=== PATIENT | male | born 1990 | race Caucasian/White ===

== ENCOUNTER 2016-10-10 12:29 | Emergency (ER) | payer OTHER ==
[~2016-10-10] VITALS: Ht 175.3 cm; Wt 63.5 kg
[2016-10-10 12:34] VITALS: Ht 175.3 cm; Wt 63.5 kg
[2016-10-10] MEDS ORDERED: FAMOTIDINE 20 MG TAB PO STA (15:13)
[2016-10-10] MEDS ORDERED: ONDANSETRON 4 MG INJ IV STA ×2 (15:13→18:41)
[2016-10-10] MEDS ORDERED: morphine 4 MG/ML VIAL IV STA (15:13)
[2016-10-10] MEDS ORDERED: SOD CHLORIDE 0.9% 1,000 ML IV STA (15:13)
[2016-10-10] MEDS ORDERED: SOD CHLORIDE 0.9% 1,000 ML IV ONE (15:30)
--- NOTE | 2016-10-10 15:46 | RADRPT ---
PROCEDURE: XR Chest. CLINICAL INDICATION: Abdomen pain. TECHNIQUE: Single frontal view. COMPARISON: None. FINDINGS: The lungs are clear. The heart size is normal. There is no pleural effusion. There is no pneumothorax. IMPRESSION: 1. Normal chest radiograph. RPTAT: QQ .Earl Argueta MD, Date Time Electronically viewed and signed by .Earl Argueta MD, on 10/10/2016 15:46 .R/
[2016-10-10 15:52] LABS: ADD SCAN DIFF NO
[2016-10-10 15:54] LABS: ABNORMAL IP MESSAGE 1; HEMATOCRIT 45.8 % (42.0-52.0); HEMOGLOBIN 15.2 g/dl (14.0-18.0); MEAN CORPUSCULAR HEMOGLOBIN 28.3 pg (29.0-33.0); MEAN CORPUSCULAR HGB CONC 33.2 g/dl (32.0-37.0); MEAN CORPUSCULAR VOLUME 85.1 fl (82.0-101.0); MEAN PLATELET VOLUME 9.6 fl (7.4-10.4); PLATELET COUNT 247 10^3/UL (140-415); RED BLOOD COUNT 5.38 10^6/ul (4.70-6.10); RED CELL DISTRIBUTION WIDTH 13.2 % (11.5-14.5); WHITE BLOOD COUNT 5.8 10^3/ul (4.8-10.8)
[2016-10-10] MEDS ORDERED: ACETAMINOPHEN 325 MG TAB PO ONE (16:00)
[2016-10-10 16:02] LABS: ADD UMIC YES; URINE BILIRUBIN (Dip) NEGATIVE (NEGATIVE); URINE BLOOD (Dip) 2+ (NEGATIVE); URINE COLOR YELLOW (YELLOW); URINE GLUCOSE (Dip) NEGATIVE (NEGATIVE); URINE KETONES (Dip) NEGATIVE (NEGATIVE); URINE LEUKOCYTE ESTERASE (Dip) NEGATIVE (NEGATIVE); URINE NITRITE (Dip) NEGATIVE (NEGATIVE); URINE TOTAL PROTEIN (Dip) 2+ (NEGATIVE); URINE UROBILINOGEN (Dip) 0.2 E.U./dL (0.1-1.0)
[2016-10-10 16:13] LABS: INR 1.46; PROTIME 17.8 Sec (12.2-14.2); PT RATIO 1.4
[2016-10-10 16:14] LABS: PARTIAL THROMBOPLASTIN TIME 33.2 Sec (25.0-35.0); URINE RBCS 0-2 /HPF (0)
[2016-10-10 16:15] LABS: MUCUS,URINE FEW; SQUAMOUS EPITHELIAL CELL,UR OCCASIONAL
[2016-10-10 16:26] LABS: ALBUMIN 4.7 g/dl (3.3-4.9); POTASSIUM 3.4 mmol/L (3.5-5.1)
[2016-10-10 16:28] LABS: CREATININE 0.87 mg/dl (0.61-1.24)
[2016-10-10 16:29] LABS: ALBUMIN/GLOBULIN RATIO 1.2; TOTAL PROTEIN 8.6 g/dl (6.1-8.1)
[2016-10-10 16:30] LABS: CALCIUM 9.1 mg/dl (8.4-10.2)
[2016-10-10 16:32] LABS: LYMPHOCYTES # 0.4 10^3/ul (0.8-2.9); MONOCYTE # 0.3 10^3/ul (0.3-0.9); MYELOCYTES # 0.5; NEUTROPHIL # 2.4 10^3/ul (1.6-7.5)
[2016-10-10 16:34] LABS: PLATELET ESTIMATE PLT APPEAR ADEQUATE
[2016-10-10] MEDS ORDERED: SOD CHLORIDE 0.9% 100 ML ONE (17:24)
[2016-10-10] MEDS ORDERED: IOHEXOL 300MG/ML 150 ML BTL ONE (17:24)
--- NOTE | 2016-10-10 18:00 | RADRPT ---
PROCEDURE: CT Abdomen and Pelvis with contrast. CLINICAL INDICATION: Abdominal pain. TECHNIQUE: CT scan of the abdomen and pelvis with contrast was performed . The patient was scanne d following the uncomplicated intravenous administration of 90 cc of Omnipaque 300. Coronal and sag ittal reformatted images were obtained from the axial source images. Images were reviewed on a high- resolution PACS workstation. images. The calculated radiation dose measures 351.13 mGy centimeters. The CTDI measures 6.96 mGy. One or more of the following dose reduction techniques were used: - Automated exposure control. - Adjustment of the mA and/or kV according to patient size . - Use of iterative reconstruction technique. Images were reviewed on a high-resolution PACS workstation COMPARISON: None. FINDINGS: CT abdomen: The lung bases are clear. The heart size is normal, without pericardial thickening or effusion. Th e liver appears enlarged and decreased density without focal mass or intrahepatic biliary dilatation . The spleen is normal in size and homogeneous in density. The stomach is partially collapsed, but is grossly unremarkable. The pancreas as visualized is normal. The gallbladder and biliary tree a re unremarkable and there is no evidence for biliary dilatation. The adrenal glands are symmetric a nd normal. The kidneys are symmetrically unremarkable as well. No renal calculus or obstructive ur opathy or mass lesion is seen. The aorta is of normal caliber. There is no retroperitoneal lymphadenopathy. The renetta hepatis guillermo on is clear. The small bowel loops are within normal limits. There are scattered mesenteric lymph nodes, more pronounced in the right lower quadrant. CT pelvis: The small bowel loops situated within the pelvis are unremarkable. The pelvic organs are normal. T he pelvic sidewalls and inguinal regions are clear. The sigmoid colon and rectum are thickened. Th ere is also thickening the transverse colon and to a greater extent at the ascending colon.. A small amount of fluid is seen in the right paracolic gutter. The appendix is not well visualized, there are no secondary findings to suggest acute appendicitis. The bladder is normal. The surrounding osseous structures are intact. Incidental note is made of incomplete fusion of the posterior elements of S1. No osteolytic or osteoblastic lesion is detected. IMPRESSION: 1. Mild, diffuse colonic thickening representing colitis from an infectious or inflammatory etiology . 2. Mildly prominent mesenteric lymphadenopathy, likely reactive in nature. 3. Mildly enlarged liver. 4. No evidence for small bowel obstruction. RPTAT: PP .Yaniv Herrera MD, MD Date Time Electronically viewed and signed by .Yaniv Herrera MD, MD on 10/10/2016 17:59 .d/
[2016-10-10] MEDS ORDERED: DICY10CA60 PO (19:43)
[2016-10-10] MEDS ORDERED: ACET325T33 PO (19:43)
[2016-10-10] MEDS ORDERED: ONDA4TAB14 PO (19:44)
[2016-10-10 20:06] VITALS: BP 123/68; PULSE 106; RESP 16; TEMP 99.9
--- NOTE | 2016-10-10 20:59 | ERD ---
ER Documentation Chief Complaint Date/Time DATE: 10/10/16 TIME: 20:55 Chief Complaint ABD PAIN WITH N/V/D. FATIGUE HPI This patient is a 26-year-old male with past medical history of appendicitis and GERD who is post appendectomy presenting to the emergency department for 14 episodes of vomiting since 6 AM today. He also reports 20 episode of loose stools since this morning. He has had diffuse abdominal pain but worse in the left lower quadrant since 9 AM today. He took Zantac today at 7 AM with mild relief of symptoms. The patient denies all other complaints currently. ROS All systems reviewed and are negative except as per history of present illness. Medications Home Meds Active Scripts Ondansetron (Ondansetron Odt) 4 Mg Tab.rapdis, 4 MG PO Q6H Y for NAUSEA AND/OR VOMITING, #10 TAB Prov:CECELIA ACEVEDO PA-C 10/10/16 Acetaminophen* (Tylenol*) 325 Mg Tablet, 2 TAB PO Q6 Y for PAIN AND OR ELEVATED TEMP, #20 TAB Prov:CECELIA ACEVEDO PA-C 10/10/16 Dicyclomine Hcl* (Bentyl*) 10 Mg Capsule, 10 MG PO QID, #20 CAP Prov:CECELIA ACEVEDO PA-C 10/10/16 Allergies Allergies: Coded Allergies: metronidazole (Verified Allergy, Severe, UNABLE TO BREATH, 10/10/16) PMhx/Soc Medical and Surgical Hx: pt denies Medical Hx, pt denies Surgical Hx FmHx Noncontributory for chief complaint Physical Exam Vitals Vital Signs Date Time Temp Pulse Resp B/P Pulse Ox O2 Delivery O2 Flow Rate FiO2 10/10/16 20:06 99.9 106 16 123/68 98 Room Air 10/10/16 15:30 101.0 10/10/16 12:34 101.4 110 22 116/78 98 Physical Exam Const: The patient is resting in the gurney in mild distress. Head: Atraumatic Eyes: Normal Conjunctiva ENT: Normal External Ears, Nose and Mouth. Neck: Full range of motion..~ No meningismus. Resp: Clear to auscultation bilaterally Cardio: Regular rate and rhythm, no murmurs Abd: Soft, the patient has diffuse tenderness to palpation but no rebound guarding or tenderness., non distended. Normal bowel sounds. Skin: No petechiae or rashes Back: No midline or flank tenderness Ext: No cyanosis, or edema Neur: Awake and alert Psych: Normal Mood and Affect Result Diagram: 10/10/16 1529 10/10/16 1529 Results 24 hrs Laboratory Tests Test 10/10/16 15:29 10/10/16 18:55 White Blood Count 5.810^3/ul Red Blood Count 5.3810^6/ul Hemoglobin 15.2g/dl Hematocrit 45.8% Mean Corpuscular Volume 85.1fl Mean Corpuscular Hemoglobin 28.3pg Mean Corpuscular Hemoglobin Concent 33.2g/dl Red Cell Distribution Width 13.2% Platelet Count 72802^3/UL Mean Platelet Volume 9.6fl Neutrophils % 42.0% Band Neutrophils % 21.0% Lymphocytes % 7.0% Reactive Lymphocytes % 9.0% Monocytes % 5.0% Eosinophils % % Metamyelocytes % 8.0% Myelocytes % 8.0% Neutrophils # 2.410^3/ul Lymphocytes # 0.410^3/ul Monocytes # 0.310^3/ul Eosinophils # 10^3/ul Metamyelocytes # 0.5 Myelocytes # 0.5 Platelet Estimate PLT APPEAR ADEQUATE Large Platelets FEW Prothrombin Time 17.8Sec Prothrombin Time Ratio 1.4 INR International Normalized Ratio 1.46 Activated Partial Thromboplast Time 33.2Sec Urine Color YELLOW Urine Clarity CLEAR Urine pH 6.0 Urine Specific [place] >=1.030 Urine Ketones NEGATIVE Urine Nitrite NEGATIVE Urine Bilirubin NEGATIVE Urine Urobilinogen 0.2 E.U./dL Urine Leukocyte Esterase NEGATIVE Urine Microscopic RBC 0-2/HPF Urine Microscopic WBC 0-2/HPF Urine Squamous Epithelial Cells OCCASIONAL Urine Mucus FEW Urine Hemoglobin 2+ Urine Glucose NEGATIVE% Urine Total Protein 2+ Sodium Level 133mmol/L Potassium Level 3.4mmol/L Chloride Level 92mmol/L Carbon Dioxide Level 28mmol/L Anion Gap 16 Blood Urea Nitrogen 14mg/dl Creatinine 0.87mg/dl Glucose Level 130mg/dl Lactic Acid Level 3.2mmol/L 2.5mmol/L Calcium Level 9.1mg/dl Total Bilirubin 1.0mg/dl Direct Bilirubin 0.00mg/dl Indirect Bilirubin 1.0mg/dl Aspartate Amino Transf (AST/SGOT) 31IU/L Alanine Aminotransferase (ALT/SGPT) 40IU/L Alkaline Phosphatase 43IU/L Total Protein 8.6g/dl Albumin 4.7g/dl Globulin 3.90g/dl Albumin/Globulin Ratio 1.20 Lipase 36U/L Current Medications Medications (Trade) Dose Ordered Sig/Shari Route PRN Reason Start Time Stop Time Status Last Admin Dose Admin Sodium Chloride (NS) 1,000 ml @ 1,000 mls/hr Q1H STAT IV 10/10/16 15:13 10/10/16 16:12 DC 10/10/16 15:23 Morphine Sulfate (morphine) 4 mg ONCE STAT IV 10/10/16 15:13 10/10/16 15:17 DC 10/10/16 15:25 Ondansetron HCl (Zofran Inj) 4 mg ONCE STAT IV 10/10/16 15:13 10/10/16 15:17 DC 10/10/16 15:24 Famotidine 20 mg 20 mg ONCE STAT PO 10/10/16 15:13 10/10/16 15:17 DC 10/10/16 15:24 Sodium Chloride (NS) 1,000 ml @ 1,000 mls/hr Q1H ONCE IV 10/10/16 15:30 10/10/16 16:29 DC 10/10/16 15:45 Acetaminophen 650 mg 650 mg ONCE ONCE PO 10/10/16 16:00 10/10/16 16:01 DC 10/10/16 15:45 Sodium Chloride (NS) 100 ml @ ud STK-MED ONCE .ROUTE 10/10/16 17:24 10/10/16 17:25 DC 10/10/16 17:41 Iohexol (Omnipaque 300mg/ ml) 150 ml STK-MED ONCE .ROUTE 10/10/16 17:24 10/10/16 17:25 DC 10/10/16 17:40 Ondansetron HCl (Zofran Inj) 4 mg ONCE STAT IV 10/10/16 18:41 10/10/16 18:42 DC 10/10/16 18:49 Procedures/MDM EMERGENCY DEPARTMENT COURSE / MEDICAL DECISION MAKING: This is a 26-year-old male who comes to the emergency room secondary to complaints of abdominal pain, vomiting, and diarrhea. The patient was given IV fluids, IV morphine, IV Zofran in the department. On re -evaluation, the patient was feeling improved. Lab results reviewed and showed elevated lactic acid 3.2 which lowered to 2.5 after 2 liters of fluid. All other lab results showed no significant acute abnormalities. The ED course was discussed with Dr. Loco Fleming, supervising ED physician who agreed and recommended discharge with Bentyl and close ER return precautions. Radiology: PROCEDURE: CT Abdomen and Pelvis with contrast. CLINICAL INDICATION: Abdominal pain. TECHNIQUE: CT scan of the abdomen and pelvis with contrast was performed . The patient was scanned following the uncomplicated intravenous administration of 90 cc of Omnipaque 300. Coronal and sagittal reformatted images were obtained from the axial source images. Images were reviewed on a high- resolution PACS workstation. images. The calculated radiation dose measures 351.13 mGy centimeters. The CTDI measures 6.96 mGy. One or more of the following dose reduction techniques were used: - Automated exposure control. - Adjustment of the mA and/or kV according to patient size . - Use of iterative reconstruction technique. Images were reviewed on a high-resolution PACS workstation COMPARISON: None. FINDINGS: CT abdomen: The lung bases are clear. The heart size is normal, without pericardial thickening or effusion. The liver appears enlarged and decreased density without focal mass or intrahepatic biliary dilatation. The spleen is normal in size and homogeneous in density. The stomach is partially collapsed, but is grossly unremarkable. The pancreas as visualized is normal. The gallbladder and biliary tree are unremarkable and there is no evidence for biliary dilatation. The adrenal glands are symmetric and normal. The kidneys are symmetrically unremarkable as well. No renal calculus or obstructive uropathy or mass lesion is seen. The aorta is of normal caliber. There is no retroperitoneal lymphadenopathy. The renetta hepatis region is clear. The small bowel loops are within normal limits. There are scattered mesenteric lymph nodes, more pronounced in the right lower quadrant. CT pelvis: The small bowel loops situated within the pelvis are unremarkable. The pelvic organs are normal. The pelvic sidewalls and inguinal regions are clear. The sigmoid colon and rectum are thickened. There is also thickening the transverse colon and to a greater extent at the ascending colon.. A small amount of fluid is seen in the right paracolic gutter. The appendix is not well visualized, there are no secondary findings to suggest acute appendicitis. The bladder is normal. The surrounding osseous structures are intact. Incidental note is made of incomplete fusion of the posterior elements of S1. No osteolytic or osteoblastic lesion is detected. IMPRESSION: 1. Mild, diffuse colonic thickening representing colitis from an infectious or inflammatory etiology. 2. Mildly prominent mesenteric lymphadenopathy, likely reactive in nature. 3. Mildly enlarged liver. 4. No evidence for small bowel obstruction. RPTAT: PP .Yaniv Herrera MD, MD Date Time Electronically viewed and signed by .Yaniv Herrera MD, MD on 10/10/2016 17:59 .d/ CC: CECELIA ACEVEDO PA-C PROCEDURE: XR Chest. CLINICAL INDICATION: Abdomen pain. TECHNIQUE: Single frontal view. COMPARISON: None. FINDINGS: The lungs are clear. The heart size is normal. There is no pleural effusion. There is no pneumothorax. IMPRESSION: 1. Normal chest radiograph. RPTAT: QQ .Earl Argueta MD, MD Date Time Electronically viewed and signed by .Earl Argueta MD, MD on 10/10/2016 15:46 .R/ CC: CECELIA ACEVEDO PA-C The primary diagnosis is nausea, vomiting, and diarrhea. Secondary diagnosis is abdominal pain with unclear etiology. I have low suspicion for acute abdomen, septicemia, or other emergent conditions at this time. Discharge: I have discussed the lab results and diagnostic findings with the patient and answered any questions or concerns. The patient was discharged with a prescription for Bentyl, Tylenol, and Zofran. The patient was advised to followup with their PMD in 1-2 days and to return to the Emergency Department if there are any new or worsening symptoms. The patient understood and agreed with the diagnosis, treatment and plan. The patient is stable for discharge at this time. Departure Diagnosis: Primary Impression: Nausea vomiting and diarrhea Additional Impression: Abdominal pain Condition: Fair Patient Instructions: Abdominal Pain, Nausea and Vomiting-Adult Referrals: [facility]ENWO[facility] PAUL D KASHER, JOHN MD Additional Instructions: Follow up with your PCP within the next 1-3 days for a more thorough evaluation and a possible referral to a specialist. Return the the emergency department immediately if symptoms worsen or change. If you have any questions regarding medications, ask your pharmacist or us before you leave. If any adverse reactions, occur while taking your medications, discontinue the treatment and return to the emergency department immediately. If any new or worsening symptoms, uncontrolled fevers, or other unexplained symptoms occur, return to the emergency department immediately. Take your medications as directed, and complete the entire course of treatment. CECELIA ACEVEDO PA-C October 10, 2016 20:59
[2016-10-11] MEDS ORDERED: CIPR500T4 PO (22:55)
== END 2016-10-10 20:10 | disposition home or self-care (01) ==
LOC: FTE 12:29
DX: R11.2 Nausea with vomiting, unspecified (principal); R19.7 Diarrhea, unspecified; R10.84 Generalized abdominal pain
CPT/HCPCS: 36415; 71010; 74177; 80053; 81001; 83605; 83690; 85025; 85610; 85730; 87040; 87086; 96374; 96375; 99285; J2270; J2405; J7030; Q9967; 81003

== ENCOUNTER 2016-10-11 18:19 | Emergency (ER) | payer OTHER ==
[~2016-10-11] VITALS: Ht 172.7 cm; Wt 60.5 kg
[~2016-10-11 18:19] MED LIST: ACET325T33 PO; DICY10CA60 PO; ONDA4TAB14 PO
[2016-10-11 18:26] VITALS: Ht 172.7 cm; Wt 60.5 kg
[2016-10-11] MEDS ORDERED: CIPROFLOXACIN 400MG/D5W 200 ML IVPB STA (20:01)
[2016-10-11] MEDS ORDERED: SOD CHLORIDE 0.9% 1,000 ML IV STA ×2 (20:01→21:29)
[2016-10-11] MEDS ORDERED: morphine 4 MG/ML VIAL IV STA (20:01)
[2016-10-11] MEDS ORDERED: ONDANSETRON 4 MG INJ IV STA (20:01)
[2016-10-11] MEDS ORDERED: FAMOTIDINE 20 MG INJ IV STA (20:03)
--- NOTE | 2016-10-11 20:11 | ERA ---
ER Documentation Chief Complaint Date/Time DATE: 10/11/16 TIME: 20:05 Chief Complaint diffuse abd pain x 2 days, nausea, diarrhea HPI This is a 26-year-old male with a past medical history of IgA immune deficiency and GERD. That returns to the emergency department today complaining of similar symptoms as he was seen and evaluated yesterday for diffuse abdominal pain. The patient indicates that for the past 48 hours he has had severe abdominal cramping followed by multiple episodes of loose watery stools. He is also felt nauseous and has had multiple episodes of nonbloody nonbilious emesis. He denies any recent travel. He has had no fevers or shaking or chills. He indicates in the past 48 hours he has had roughly 40 episodes of diarrhea. The patient had been evaluated yesterday [facility] with a CT scan of the abdomen which I reviewed and indicated there is mild diffuse colonic thickening that represented colitis from an infectious or inflammatory etiology. There is no evidence of a small bowel obstruction. The patient had a previous appendectomy. The patient indicates however he has had no hemoptysis, hematemesis or melanotic stools. Patient had been discharged home with dicyclomine and Zofran but indicates his symptoms have not improved. ROS All systems reviewed and are negative except as per history of present illness. Medications Home Meds Active Scripts Ondansetron (Ondansetron Odt) 4 Mg Tab.rapdis, 4 MG PO Q6H Y for NAUSEA AND/OR VOMITING, #10 TAB Prov:CECELIA ACEVEDO PA-C 10/10/16 Acetaminophen* (Tylenol*) 325 Mg Tablet, 2 TAB PO Q6 Y for PAIN AND OR ELEVATED TEMP, #20 TAB Prov:CECELIA ACEVEDO PA-C 10/10/16 Dicyclomine Hcl* (Bentyl*) 10 Mg Capsule, 10 MG PO QID, #20 CAP Prov:CECELIA ACEVEDO PA-C 10/10/16 Allergies Allergies: Coded Allergies: metronidazole (Verified Allergy, Severe, UNABLE TO BREATH, 10/10/16) PMhx/Soc History of Surgery: Yes (Appendectomy) Anesthesia Reaction: No Hx Respiratory Disorders: No Hx Cardiac Disorders: No Hx Psychiatric Problems: No Hx Miscellaneous Medical Probl: Yes (hypoglycema, gerd) Hx Alcohol Use: Yes (social ) Hx Substance Use: No Hx Tobacco Use: No Smoking Status: Never smoker Physical Exam Vitals Vital Signs Date Time Temp Pulse Resp B/P Pulse Ox O2 Delivery O2 Flow Rate FiO2 10/11/16 18:26 98.7 89 20 132/72 100 Physical Exam Constitutional:Well-developed. Well-nourished. HEENT:Normocephalic. Atraumatic.Pupils were equal round reactive to light. Dry mucous membranes.No tonsillar exudates. Neck: No nuchal rigidity. No lymphadenopathy. No posterior cervical spine tenderness or step-offs. Respiratory: Not using accessory muscles of respiration.Lungs were clear to auscultation bilaterally. No rhonchi. No rales. No wheezing. Cardiovascular: Regular rate regular rhythm.No murmurs. No rubs were appreciated.S1, S2 normal. Distal pulses are palpable 2+ bilaterally. GI: Abdomen was soft. Mild tenderness in the left lower quadrant with no peritoneal signs. Non Distended. No pulsatile abdominal masses or bruits. No rebound. No guarding. Bowel sounds were present and normal. Muscle skeletal: Full range of motion of both the upper and lower extremities bilaterally.Normal muscle tone.No assymetrical calf tenderness or swelling. Skin: No petechia, no purpura. No lesions on the palms or the soles of the feet. No maculopapular rash. NEURO: Patient was alert, awake, orientated x3.No facial droop. Gait observed and normal with no ataxia.Speech had regular rate and rhythm. No focal neurological deficits. Result Diagram: 10/11/16202410/11/162024 Results 24 hrs Laboratory Tests Test 10/11/16 20:25 White Blood Count 6.110^3/ul Red Blood Count 5.3310^6/ul Hemoglobin 15.1g/dl Hematocrit 45.1% Mean Corpuscular Volume 84.6fl Mean Corpuscular Hemoglobin 28.3pg Mean Corpuscular Hemoglobin Concent 33.5g/dl Red Cell Distribution Width 13.1% Platelet Count 16629^3/UL Mean Platelet Volume 10.1fl Neutrophils % 33.0% Band Neutrophils % 30.0% Lymphocytes % 27.0% Monocytes % 10.0% Eosinophils % % Neutrophils # 2.010^3/ul Lymphocytes # 1.610^3/ul Monocytes # 0.610^3/ul Eosinophils # 10^3/ul Sodium Level 137mmol/L Potassium Level 3.5mmol/L Chloride Level 97mmol/L Carbon Dioxide Level 29mmol/L Anion Gap 15 Blood Urea Nitrogen 12mg/dl Creatinine 0.81mg/dl Glucose Level 147mg/dl Lactic Acid Level 1.4mmol/L Calcium Level 9.1mg/dl Total Bilirubin 0.5mg/dl Direct Bilirubin 0.00mg/dl Indirect Bilirubin 0.5mg/dl Aspartate Amino Transf (AST/SGOT) 31IU/L Alanine Aminotransferase (ALT/SGPT) 35IU/L Alkaline Phosphatase 41IU/L Total Protein 7.7g/dl Albumin 3.9g/dl Globulin 3.80g/dl Albumin/Globulin Ratio 1.02 Amylase Level 181U/L Lipase 576U/L Current Medications Medications (Trade) Dose Ordered Sig/Shari Route PRN Reason Start Time Stop Time Status Last Admin Dose Admin Sodium Chloride (NS) 1,000 ml @ 1,000 mls/hr Q1H STAT IV 10/11/16 20:01 10/11/16 21:00 DC 10/11/16 20:41 Morphine Sulfate (morphine) 4 mg ONCE STAT IV 10/11/16 20:01 10/11/16 20:04 DC 10/11/16 20:41 Ondansetron HCl 4 mg 4 mg ONCE STAT IV 10/11/16 20:01 10/11/16 20:04 DC 10/11/16 20:41 Ciprofloxacin/ Dextrose (Cipro Ivpb) 200 ml @ 200 mls/hr ONCE STAT IVPB 10/11/16 20:01 10/11/16 21:00 DC 10/11/16 22:13 Famotidine (Pepcid Iv) 20 mg ONCE STAT IV 10/11/16 20:03 10/11/16 20:05 DC 10/11/16 20:41 Ketorolac Tromethamine 30 mg 30 mg ONCE ONCE IV 10/11/16 21:30 10/11/16 21:31 DC 10/11/16 21:53 Sodium Chloride (NS) 1,000 ml @ 1,000 mls/hr Q1H STAT IV 10/11/16 21:29 10/11/16 22:28 DC 10/11/16 22:13 Metoclopramide HCl (Reglan) 10 mg ONCE STAT IV 10/11/16 21:29 10/11/16 21:30 DC 10/11/16 21:45 Procedures/MDM This patient presented to the emergency department with abdominal pain and was seen and evaluated by myself. My differential diagnosis included but was not limited to abdominal aortic aneurysm, appendicitis, pancreatitis, perforated peptic ulcer, perforated viscus, Boerhaaves syndrome or visceral pain such as diverticulitis, DKA, esophagitis, hepatitis or bowel obstruction. The patient was placed on a diagnostic cardiac sonographer, continuous pulse oximetry, and IV access was established by nursing staff. The patient received a liter bolus of normal saline intravenous morphine and Zofran for analgesic control. The patient had provided a stool sample that was sent for Clostridium difficile. Blood cultures and urine cultures were obtained. The patient has an allergy to Flagyl. Therefore the patient was given IV ciprofloxacin for possible acute colitis. Observation Note: Time: 4 hours Family Hx: No Hypertension Evaluation: Multiple exams showed no peritoneal signs of the abdomen therefore did not feel is necessary to repeat the CT scan. The patient was able to tolerate oral intake. I spoke with the [facility] physician Dr. Claros who kindly was able to arrange for home health care nurse to come to his place of residence in the next 24 hours to administer recurrent IV fluids if needed. This was relayed to the patient he stated he felt comfortable being discharged home. There is no elevation in his lactic acid. There is no leukocytosis or electrolyte abnormalities. I did feel this was likely result of bacterial colitis and the cultures of the patient's stool and C. difficile will be followed up with. His pain improved with anti-inflammatories which included IV Toradol. The patient was discharged home in fair condition. They were instructed to return to the emergency department at any time if there was any worsening of their condition. The patient stated they would follow up with their PCP in the next 24-48 hours to initiate a suitable medication regimen under the care of their PCP as well as to allow their PCP to monitor any drug reactions. The patient was discharged home with prescriptions after they gave informed consent to the new medication. They were also fully informed by myself on the adverse effects and adverse drug interactions in order to provide adequate safeguards to prevent possible adverse reactions to medications. Departure Diagnosis: Primary Impression: Nausea vomiting and diarrhea Additional Impression: Acute colitis Condition: Serious OSIEL SIMS October 11, 2016 20:11
[2016-10-11 20:54] LABS: ADD SCAN DIFF NO
[2016-10-11 20:56] LABS: ABNORMAL IP MESSAGE 1; HEMATOCRIT 45.1 % (42.0-52.0); HEMOGLOBIN 15.1 g/dl (14.0-18.0); MEAN CORPUSCULAR HEMOGLOBIN 28.3 pg (29.0-33.0); MEAN CORPUSCULAR HGB CONC 33.5 g/dl (32.0-37.0); MEAN CORPUSCULAR VOLUME 84.6 fl (82.0-101.0); MEAN PLATELET VOLUME 10.1 fl (7.4-10.4); PLATELET COUNT 208 10^3/UL (140-415); RED BLOOD COUNT 5.33 10^6/ul (4.70-6.10); RED CELL DISTRIBUTION WIDTH 13.1 % (11.5-14.5); WHITE BLOOD COUNT 6.1 10^3/ul (4.8-10.8)
[2016-10-11 21:07] LABS: ALBUMIN 3.9 g/dl (3.3-4.9)
[2016-10-11 21:08] LABS: POTASSIUM 3.5 mmol/L (3.5-5.1)
[2016-10-11 21:10] LABS: ALBUMIN/GLOBULIN RATIO 1.02; BILIRUBIN,INDIRECT 0.5 mg/dl (0-1.1); BILIRUBIN,TOTAL 0.5 mg/dl (0.2-1.3); CREATININE 0.81 mg/dl (0.61-1.24); TOTAL PROTEIN 7.7 g/dl (6.1-8.1)
[2016-10-11 21:11] LABS: CALCIUM 9.1 mg/dl (8.4-10.2)
--- NOTE | 2016-10-11 21:13 | RADRPT ---
PROCEDURE: XR Chest. CLINICAL INDICATION: chest pain, cough TECHNIQUE: Single frontal view of the chest was obtained COMPARISON: None FINDINGS: The heart and mediastinum are within normal limits. The lungs are clear. There is no pleural effusion or pneumothorax. RPTAT: AA IMPRESSION: No acute disease. .Panfilo Bal MD, MD Date Time Electronically viewed and signed by .Panfilo Bal MD, on 10/11/2016 21:13 .S/
[2016-10-11 21:29] LABS: LYMPHOCYTES # 1.6 10^3/ul (0.8-2.9); MONOCYTE # 0.6 10^3/ul (0.3-0.9)
[2016-10-11] MEDS ORDERED: METOCLOPRAMIDE 10 MG INJ IV STA (21:29)
[2016-10-11] MEDS ORDERED: KETOROLAC 30 MG INJ IV ONE (21:30)
[2016-10-11 22:55] VITALS: BP 106/58; PULSE 64; RESP 18; TEMP 98.5
[2016-10-11] MEDS ORDERED: CIPR500T4 PO (22:55)
== END 2016-10-11 23:41 | disposition home or self-care (01) ==
LOC: FTE 18:19
DX: R11.2 Nausea with vomiting, unspecified (principal); K52.9 Noninfective gastroenteritis and colitis, unspecified
CPT/HCPCS: 71010; 80053; 82150; 83605; 83690; 85025; 87040; 87045; 87075; 96361; 96374; 96375; 99284; J0744; J1885; J2270; J2405; J2765; J7030

== ENCOUNTER 2017-12-19 00:25 | Emergency (ER) | END 2017-12-19 06:48 | disposition home or self-care (01) ==